=== PATIENT | female | born 1985 | race African-American/Black ===

== ENCOUNTER 2016-10-28 18:51 | Inpatient (IN) | payer OTHER ==
[~2016-10-28] VITALS: Ht 168.9 cm; Wt 81.8 kg
[2016-10-28 19:06] VITALS: BP 123/58
[2016-10-28 20:23] VITALS: BP 107/56
[2016-10-28 20:56] LABS: EOSINOPHIL (%) 1.1 % (0-5); EOSINOPHIL COUNT 0.1 K/uL (0-0.3); HEMATOCRIT 33.2 % (36.0-46.0); IMMATURE GRANULOCYTE (%) 0.3 % (0.0-0.7); LYMPHOCYTE COUNT 1.4 K/uL (1.0-2.8); MCH 31.7 PG (29.0-34.0); MCHC 33.7 G/DL (30.0-36.0); MCV 94.1 FL (83-99); MONOCYTE (%) 7.6 % (3-12); MONOCYTE COUNT 0.5 K/uL (0-0.8); NEUTROPHIL COUNT 4.1 K/uL (1.8-6.4); PLATELET COUNT 139 K/uL (156-360); RBC DIS.WIDTH-CV 13.6 % (11.8-14.6); RBC DIS.WIDTH-SD 46.3 % (39-53); RED BLOOD COUNT 3.53 M/uL (3.80-5.20); WHITE BLOOD COUNT 6.1 K/uL (4.1-10.2)
[2016-10-28 21:02] VITALS: BP 110/59
[2016-10-28 21:58] VITALS: BP 123/70
[2016-10-28 22:05] LABS: AMPHETAMINES QUANT VALUE 0 NG/ML; BARBITUATES QUANT VALUE 0 NG/ML; BENZODIAZEPINES QUANT VALUE 0 NG/ML; BENZODIAZEPINES, URINE SCREEN Negative (200 ng/mL); MARIJUANA QUANT VALUE 0 NG/ML; OPIATES QUANTITATIVE VALUE 0 NG/ML; PHENCYCLIDINE QUANT VALUE 0 NG/ML
[2016-10-28 23:03] VITALS: BP 116/70
[2016-10-29] VITALS (13 sets, daily range): BP systolic 104–145; BP diastolic 53–92
[2016-10-29 17:34] LABS: ANION GAP 9 MEQ/L (2-14); CHLORIDE 106 MEQ/L (99-109); POTASSIUM 3.8 MEQ/L (3.7-5.4); SAMPLE HEMOLYSIS CHECK 0; SAMPLE ICTERIC CHECK 0; SAMPLE LIPEMIA CHECK 1; SODIUM 136 MEQ/L (136-147); TOTAL BILIRUBIN 0.3 MG/DL (0.0-1.0)
[2016-10-29 17:40] LABS: ALKALINE PHOSPHATASE 110 IU/L (3-129); GFR ESTIMATE (CALCULATED) > 59 mL/min/; GLUCOSE 121 mg/dL (70-99); UREA NITROGEN (BUN) 8 mg/dL (9-23)
[2016-10-29 17:46] LABS: EOSINOPHIL (%) 0.7 % (0-5); EOSINOPHIL COUNT 0.1 K/uL (0-0.3); HEMATOCRIT 34.5 % (36.0-46.0); IMMATURE GRANULOCYTE (%) 0.3 % (0.0-0.7); LYMPHOCYTE COUNT 1.7 K/uL (1.0-2.8); MCH 29.7 PG (29.0-34.0); MCHC 31.9 G/DL (30.0-36.0); MCV 93.2 FL (83-99); MEAN PLAT.VOLUME 11.7 uM^3 (9.5-12.4); MONOCYTE (%) 8.3 % (3-12); MONOCYTE COUNT 0.7 K/uL (0-0.8); NEUTROPHIL (%) 71.3 % (45-76); NEUTROPHIL COUNT 6.3 K/uL (1.8-6.4); PLATELET COUNT 154 K/uL (156-360); RBC DIS.WIDTH-CV 13.5 % (11.8-14.6); RBC DIS.WIDTH-SD 46.2 % (39-53)
[2016-10-29 17:47] LABS: WHITE BLOOD COUNT 8.8 K/uL (4.1-10.2)
[2016-10-29] MEDS ORDERED: PEPCID20 MG PO (19:13)
[2016-10-29] MEDS ORDERED: ZOFRAN4 MG PO (19:14)
[2016-10-29] MEDS ORDERED: PROBIOTIC1 EAC7 PO (19:14)
[2016-10-29] MEDS ORDERED: CHEWABLE-VITE1 EACH PO (19:15)
[2016-10-29] MEDS ORDERED: primrose oil (19:16)
[2016-10-29] MEDS ORDERED: VITAMIN C1000 M1 PO (19:17)
[2016-10-29] MEDS ORDERED: IRON325 MG PO (19:17)
[2016-10-29] MEDS ORDERED: [UNRECOGNIZED DRUG - OTHER] (19:17)
[2016-10-29] MEDS ORDERED: CIPRO500 MG PO (19:18)
[2016-10-29] MEDS ORDERED: MAG-TAB SR84 MG PO (19:18)
[2016-10-30 08:03] VITALS: BP 122/68
[2016-10-30 08:05] LABS: EOSINOPHIL (%) 1.6 % (0-5); EOSINOPHIL COUNT 0.1 K/uL (0-0.3); HEMATOCRIT 37.5 % (36.0-46.0); IMMATURE GRANULOCYTE (%) 0.4 % (0.0-0.7); LYMPHOCYTE COUNT 2.1 K/uL (1.0-2.8); MCH 29.9 PG (29.0-34.0); MCHC 31.5 G/DL (30.0-36.0); MCV 94.9 FL (83-99); MEAN PLAT.VOLUME 11.7 uM^3 (9.5-12.4); MONOCYTE (%) 7.6 % (3-12); MONOCYTE COUNT 0.5 K/uL (0-0.8); NEUTROPHIL (%) 60.1 % (45-76); NEUTROPHIL COUNT 4.1 K/uL (1.8-6.4); PLATELET COUNT 171 K/uL (156-360); RBC DIS.WIDTH-CV 13.9 % (11.8-14.6); RED BLOOD COUNT 3.95 M/uL (3.80-5.20); WHITE BLOOD COUNT 6.8 K/uL (4.1-10.2)
[2016-10-30 15:44] VITALS: BP 132/79
[2016-10-30 22:20] VITALS: BP 109/52
[2016-10-31 07:43] VITALS: BP 122/66
[2016-10-31] MEDS ORDERED: BREAST PUMP MC (10:22)
[2016-10-31] MEDS ORDERED: IBUPROFEN800 MG PO (10:25)
== END 2016-10-31 13:56 | disposition home or self-care (01) | DRG 774 ==
LOC: LDRP-OP 18:51 → 2WEST 18:52
PROVIDERS: Advanced Practice Midwife; Obstetrics & Gynecology
PROC: 10E0XZZ Delivery of Products of Conception, External Approach (ICD-10-PCS; principal; 2016-10-28)
DX: O98.32 Other infections with a predominantly sexual mode of transmission complicating childbirth (principal); A63.0 Anogenital (venereal) warts; O99.824 Streptococcus B carrier state complicating childbirth; O42.92 Full-term premature rupture of membranes, unspecified as to length of time between rupture and onset of labor; Z3A.40 40 weeks gestation of pregnancy; Z37.0 Single live birth
CPT/HCPCS: 80053; 80306 90; 84443; 85025; 93005; G0378; J2540; J7120